=== PATIENT | male | born 1930 | race Caucasian/White ===

== ENCOUNTER 2017-12-24 08:09 | Emergency (ER) | payer MEDICARE, OTHER ==
[~2017-12-24] VITALS: Ht 167.6 cm; Wt 63.5 kg
[~2017-12-24 08:09] MED LIST: ACET500 PO; ALPR.25 PO; ALPR.5 PO; ASCO500 PO; ASPI81CH PO; AZIT250 PO; Armour Thyroid15 MG PO; BENZ100A PO; BUME2 PO; CALCITRATE200 MG PO; CEFP200 PO; CEPH500 PO; CITA20 PO; DOCU100 PO; ESCI10 PO; ESCI20 PO; FERSU90EL PO; FOLI400 PO; Ferrous Sulfat325 MG; GUAI600T33 PO; HYDACE5 PO; IRON150C PO; LASIX; LATA.005SO BOTHEYES; LEVE500 PO; LEVO750 PO; MEGE40T PO; METO2.5 PO; METO25ER PO; METOPROLOL; METR500 PO; MIDO5 PO; MULT50FEL PO; MULTIVITAMIN PO; Megestrol Aceta40 MG PO; Milk Of Ma800 MG/5 M PO; NORTHERA100 MG PO; ONDA4 PO; ONDA4ODT MM; OXYM.05NI; POTA10T PO; POTCHL10ER PO; PROBIOTIC1 EAC1 PO; PYRI100 PO; Percocet 5-3251 EACH PO; SERT50 PO; SPIR25 PO; TAMS.4ER PO; THYR60 PO; TORSE20 PO; VITAMIN D32000 UNI1 PO; Vitamin B Comple1 EA PO; WELLBUTRIN; Xalatan2.5 ML BOTHEYES; Zofran Odt4 MG SL; [UNRECOGNIZED DRUG - REMARK] PO
== END 2017-12-24 10:20 | disposition home or self-care (01) ==
LOC: ER 08:09
DX: Z04.3 Encounter for examination and observation following other accident (principal); J44.9 Chronic obstructive pulmonary disease, unspecified; F32.9 Major depressive disorder, single episode, unspecified; I50.9 Heart failure, unspecified; E03.9 Hypothyroidism, unspecified; F03.90 Unspecified dementia, unspecified severity, without behavioral disturbance, psychotic disturbance, mood disturbance, and anxiety; Z79.899 Other long term (current) drug therapy; Z79.82 Long term (current) use of aspirin; W19.XXXA Unspecified fall, initial encounter
CPT/HCPCS: 99283

== ENCOUNTER 2017-12-27 13:58 | Emergency (ER) | payer MEDICARE, OTHER ==
[~2017-12-27] VITALS: Ht 170.2 cm; Wt 68.0 kg
== END 2017-12-27 14:38 | disposition home or self-care (01) ==
LOC: ER 13:58
DX: S01.01XA Laceration without foreign body of scalp, initial encounter (principal); S41.112A Laceration without foreign body of left upper arm, initial encounter; F03.90 Unspecified dementia, unspecified severity, without behavioral disturbance, psychotic disturbance, mood disturbance, and anxiety; E03.9 Hypothyroidism, unspecified; J44.9 Chronic obstructive pulmonary disease, unspecified; W18.30XA Fall on same level, unspecified, initial encounter; Z79.899 Other long term (current) drug therapy; Z79.82 Long term (current) use of aspirin
CPT/HCPCS: 99283